=== PATIENT | female | born 1950 | race Caucasian/White ===

== ENCOUNTER 2016-12-14 10:05 | Day surgery (SDC) | payer MEDICARE, OTHER ==
[~2016-12-14] VITALS: Ht 160 cm; Wt 68.0 kg
[~2016-12-14 10:05] MED LIST: FLECTOR1 PATCH TRANSDERM; LISINOPRIL5 MG PO; PROAIR HFA8.5 GM INH; TRAZODONE HCL50 MG PO
[2016-12-14 10:41] LABS: BASOPHILS 0.4 % (0.0-2.0); EOSINOPHILS 1.8 % (0-7); HEMATOCRIT 42.2 % (36.0-48.0); HEMOGLOBIN 14.1 g/dL (12-16); IMMATURE GRANULOCYTES 0.2 % (0-5); LYMPHOCYTES 29.8 % (15-50); MCH 30.7 pg (26.0-34.0); MCHC 33.4 g/dL (31.0-37.0); MCV 91.7 fL (80.0-100.0); MEAN PLATELET VOLUME 10.3 fL (7.4-10.4); MONOCYTES 7.4 % (2-11); NEUTROPHILS 60.4 % (40-80); PLATELET COUNT 215 10x3/uL (130-400); RDW 12.2 % (11.5-14.5); WBC 9.8 10x3/uL (4.8-10.8)
[2016-12-14] MEDS ORDERED: PEPCID20 MG PO (10:44)
[2016-12-14] MEDS ORDERED: OMEPRAZOLE20 M1 PO (10:45)
[2016-12-14] MEDS ORDERED: CALCIUM 600+D T1 TA1 PO (10:46)
[2016-12-14] MEDS ORDERED: VITAMIN D31000 UNIT PO (10:46)
[2016-12-14] MEDS ORDERED: VITAMIN B-12500 MC1 PO (10:47)
[2016-12-14] MEDS ORDERED: FISH OIL 1,0001 CA1 PO (10:47)
[2016-12-14] MEDS ORDERED: CENTRUM COMPLE1 EACH PO (10:47)
[2016-12-14] MEDS ORDERED: MAGNESIUM OXID250 MG (10:47)
[2016-12-14] MEDS ORDERED: BAYER CHEWABLE81 MG PO (10:48)
[2016-12-14 10:54] LABS: ANION GAP 10.7 mmol/L (8-16); CALCIUM 9.1 mg/dL (8.5-10.1); CARBON DIOXIDE 30.1 mmol/L (21.0-32.0); CREATININE - SERUM 0.9 mg/dL (0.6-1.3); POTASSIUM - SERUM 3.8 mmol/L (3.5-5.1)
[2016-12-14 11:37] VITALS: BP 132/68; Ht 160 cm; Wt 68.0 kg
--- NOTE | 2016-12-14 17:05 | NUR ---
1445 FROM PACU AFTER COLONOSCOPY. PATIENT ROUSES BUT SLEEPY. WAS BURPED AFTER PROCEDURE AND IS PASSING FLATUS.
--- NOTE | 2016-12-14 17:06 | NUR ---
1515 FULL LIQUIDS SERVED AND IS TOLERATING.
--- NOTE | 2016-12-14 17:08 | NUR ---
[address] AYAH POSEY.
--- NOTE | 2016-12-14 17:10 | NUR ---
1555 UP AND VOIDED IV DCD CATHETER INTACT. WENT OVER DISCHARGE INSTRUCTIONS AND VERBALLY UNDERSTANDS.1605 TO HOME VIA W/C WITH SPOUSE.
--- NOTE | 2016-12-28 11:23 | OP ---
PATIENT NAME: ROSA MARIA BOYKIN MEDICAL RECORD: [id number] :46 LOCATION:D.OPS ADMISSION DATE: SURGEON: LIANNE DE OLIVEIRA MD DATE OF OPERATION: 12/14/2016 PROCEDURE: Colonoscopy without biopsy or polypectomy. BATTERY TESTER FIELD: Lianne De Oliveira MD SCOPE: Olympus video colonoscope. MEDICATIONS: Per TIVA. The patient was intubated for this procedure. Since she has a history of aspiration secondary to gastroesophageal reflux disease, she received 100 mg of propofol for this procedure, Versed 2 mg, all IV push. INDICATION FOR THE PROCEDURE: Change in bowel pattern with constipation, diverticular disease, hematochezia felt likely related to hemorrhoids and history of colon polyps. FINDINGS: Informed consent was given. The patient was made comfortable with the above medications. After reaching an adequate level of sedation by slow IV push, the patient was placed on her left side. The rectal exam revealed good sphincter tone, no fissures or fistulas were appreciated. No external skin tags were seen. The colonoscope was advanced to the cecum where the ileocecal valve and appendiceal orifice were identified. In withdrawal of the scope, the patient was noted to have pandiverticulosis without diverticulitis and additionally, she had spasm associated with irritable bowel syndrome, constipation predominant. Within the rectal vault, hemorrhoids were appreciated. The scope was then withdrawn. IMPRESSION: 1. Normal cecum and normal appendiceal orifice. 2. Pandiverticulosis without diverticulitis. 3. Spasm associated with irritable bowel syndrome. 4. Grade I hemorrhoids, which are the cause of bleeding, but are not bleeding at this time. PLAN: The patient should employ a good high fiber diet and for constipation avoidance, she should have fluid, fiber, stool softeners and if necessary a daily dose of MiraLax or milk of magnesia. Probiotics should also be taken and she should avoid if possible anti-inflammatory drugs. TRANSINT:[id number] Voice Confirmation ID: [id number] DOCUMENT ID: [id number] LIANNE DE OLIVEIRA MD at 1123 CC: DANO ALEJO MD [id number] DICTATION DATE: 12/14/16 1419 CUSTOMER CARE MANAGER: 12/14/16 190 [facility] 12/14/16 [facility] [address] [facility] [place] [address]
== END 2016-12-14 16:05 | disposition home or self-care (01) ==
LOC: D.OPS 10:05
PROVIDERS: Anesthesiology
DX: Z86.010 Personal history of colon polyps (principal); K57.30 Diverticulosis of large intestine without perforation or abscess without bleeding; R19.4 Change in bowel habit; K64.0 First degree hemorrhoids; I10 Essential (primary) hypertension; K21.9 Gastro-esophageal reflux disease without esophagitis; M19.90 Unspecified osteoarthritis, unspecified site

== ENCOUNTER 2017-05-31 12:05 | Day surgery (SDC) | payer MEDICARE, OTHER ==
[~2017-05-31] VITALS: Ht 160 cm; Wt 68.2 kg
--- NOTE | ~2017-05-31 | OP ---
PATIENT NAME: ROSA MARIA BOYKIN MEDICAL RECORD: [id number] :46 LOCATION:D.OPS ADMISSION DATE: SURGEON: LISANDRO PALOMINO DO DATE OF OPERATION: 05/31/2017 PROCEDURE: EGD with biopsies. INDICATIONS FOR PROCEDURE: Followup of esophageal ulcer without bleeding. SCOPE: Olympus video gastroscope. MEDICATIONS: Propofol 100 mg IV per anesthesia. ESTIMATED BLOOD LOSS: Minimal. COMPLICATIONS: None. FINDINGS: Informed consent was given. The patient was made comfortable with the above medication. After reaching an adequate level of sedation by slow IV push, the patient was placed on her left side. The endoscope was then advanced under direct visualization through the mouth to the second portion of the duodenum. The upper, middle, and lower thirds of the esophagus appeared normal. At the GE junction, there was a very mild evidence of LA class A reflux-induced esophagitis. There were no ulcerations or irritation/inflammation. Just beyond the GE junction, it was evident that there was still a hiatal hernia present. This was noticeable from the esophageal view. As the endoscope was advanced beyond the GE junction into the stomach and retroflexed to view the cardia was apparent that a previous Yaquelin fundoplication had been performed. The wrap was not intact at this time, but was still partially intact. The fundus, body, antrum, and prepyloric regions of the stomach all appeared normal. Random biopsies were taken from the antrum and incisura to submit for histology and to rule out H. pylori. The endoscope was advanced beyond the pylorus into the duodenum where the bulb and second portion of the duodenum appeared normal. The endoscope was then withdrawn from the patient. The patient tolerated the procedure well and there were no complications. IMPRESSION: 1. LA class A reflux-induced esophagitis. 2. Previous Yaquelin fundoplication with residual hiatal hernia. PLAN AND RECOMMENDATIONS: 1. Discharge home when recovery parameters are met. 2. Follow up biopsy specimen results. 3. Continue current diet. 4. Continue current medications. 5. Notify GI clinic of change in symptoms. At this time, symptoms are well controlled with current medications. TRANSINT:[id number] Voice Confirmation ID: [id number] DOCUMENT ID: [id number] OPERATIVE REPORT [id number] ROSA MARIA BOYKIN LISANDRO PALOMINO DO CC: [id number] DICTATION DATE: 05/31/17 1605 BUSINESS OFFICE COORDINATOR: 05/31/172039 [facility] 05/31/17 [facility] [address] [id number]
[~2017-05-31 12:05] MED LIST changes: +BAYER CHEWABLE81 MG PO; +CALCIUM 600+D T1 TA1 PO; +CENTRUM COMPLE1 EACH PO; +FISH OIL 1,0001 CA1 PO; +MAGNESIUM OXID250 MG; +OMEPRAZOLE20 M1 PO; +PEPCID20 MG PO; +VITAMIN B-12500 MC1 PO; +VITAMIN D31000 UNIT PO
[2017-05-31 12:58] LABS: BASOPHILS 0.1 % (0-2); EOSINOPHILS 1.9 % (0-7); HEMATOCRIT 41.5 % (36.0-48.0); IMMATURE GRANULOCYTES 0.1 % (0-5); LYMPHOCYTES 45.7 % (15-50); MCH 30.6 pg (26.0-34.0); MCHC 33.7 g/dL (31.0-37.0); MCV 90.8 fL (80.0-100.0); MEAN PLATELET VOLUME 10.7 fL (7.4-10.4); MONOCYTES 6.3 % (2-11); NEUTROPHILS 45.9 % (40-80); PLATELET COUNT 249 10x3/uL (130-400); RBC 4.57 10x6/uL (4.00-5.40); RDW 12.1 % (11.5-14.5); WBC 6.7 10x3/uL (4.8-10.8)
[2017-05-31 13:06] LABS: CALC OSMOLALITY 283 mosm/kg (275-300); CALCIUM 8.6 mg/dL (8.5-10.1); CARBON DIOXIDE 30.2 mmol/L (21.0-32.0); CHLORIDE - SERUM 106 mmol/L (98-107); CREATININE - SERUM 0.7 mg/dL (0.6-1.3); GLUCOSE 98 mg/dL (74-106); POTASSIUM - SERUM 3.8 mmol/L (3.5-5.1); SODIUM 143 mmol/L (136-145); UREA NITROGEN 11 mg/dL (7-18); eGFR NON AFRICAN AMERICAN 88 mL/min (90-120)
[2017-05-31 13:16] VITALS: Ht 160 cm; Wt 68.2 kg
--- NOTE | 2017-05-31 17:09 | NUR ---
1705 DISCHARGE INSTRUCTIONS GABIPLETClaudia. PATIENT HAS NO QUESTIONS OR CONCERNS AT THIS TIME. ESCORTED OUT.
== END 2017-05-31 17:05 | disposition home or self-care (01) ==
LOC: D.OPS 12:05
PROVIDERS: Anesthesiology
DX: K22.10 Ulcer of esophagus without bleeding (principal); K21.0 Gastro-esophageal reflux disease with esophagitis; I10 Essential (primary) hypertension; K44.9 Diaphragmatic hernia without obstruction or gangrene; Z01.812 Encounter for preprocedural laboratory examination

== ENCOUNTER 2018-09-13 09:31 | Day surgery (SDC) | payer OTHER ==
[~2018-09-13] VITALS: Ht 160 cm; Wt 72.3 kg
--- NOTE | ~2018-09-13 | OP ---
PATIENT NAME: ROSA MARIA BOYKIN MEDICAL RECORD: [id number] :46 LOCATION:D.[facility] ADMISSION DATE: SURGEON: LIANNE DE OLIVEIRA MD DATE OF OPERATION: 09/13/2018 PROCEDURE: EGD with biopsy. SUPERINTENDENT COMPRESSOR STATIONS: Lianne De Oliveira MD SCOPE: Olympus video gastroscope. MEDICATIONS: Per TIVA anesthesia. The patient received 140 mg of propofol for this procedure, O2 4 liters. INDICATION FOR THE PROCEDURE: Epigastric pain, gastroesophageal reflux disease as well as nausea. PRIMARY CARE PHYSICIAN: Harish Duarte MD The patient's last EGD procedure was with Dr. Carlos Mcgrath, 05/31/2017, which was done as a followup for an esophageal ulceration without bleeding that was noted on an EGD 2 months before. This procedure was significant for LA class A reflux-induced esophagitis. The patient was noted to have a small hiatal hernia and evidence of her previous Yaquelin fundoplication was noted. The patient was discharged on her previous medications. Pathology report of the gastric biopsies revealed mild chronic gastritis, H. pylori was not present. An EGD will be done this date. FINDINGS AND DESCRIPTION OF PROCEDURE: Informed consent was given. The patient was made comfortable with the above medications. After reaching an adequate level of sedation by slow IV push, the patient was placed on her left side. The endoscope was then advanced under direct visualization through the posterior pharyngeal area and advanced to the distal esophagus. Only very mild distal esophagitis was noted followed by a small hiatal hernia, which was seen both on direct and retroflex views. The patient did have evidence of a previous Yaquelin fundoplication, but since she has a hiatal hernia and is actively refluxing, this surgical procedure is no longer effective. If she wishes to proceed with a repeat Yaquelin fundoplication, she will require 24-hour pH and manometry and I will discuss that with her after the procedure. We then proceeded into the gastric area and thoroughly explored the cardia, body, fundus, and antral areas, only very mild inflammation was seen throughout the gastric area and biopsies were taken at the antral area looking for the presence of Helicobacter pylori. The duodenal bulb to the second portion had mild inflammation present and biopsies were taken. The scope was then withdrawn. IMPRESSION: 1. Very mild distal esophagitis due to refluxing biopsy. 2. Evidence of a previous Yaquelin fundoplication which is no longer effective. 3. Small hiatal hernia. 4. Mild gastritis. 5. Mild duodenitis. PLAN: OPERATIVE REPORT [id number] REGGIEROSA MARIA NATARAJAN 1. The patient is presently taking omeprazole at a dose of 20 mg p.o. daily. We will add famotidine at 20 mg p.o. at bedtime. 2. We will recommend a redo of the Yaquelin fundoplication and we will also query the patient about her to choice of a surgeon. 3. Caution with anti-inflammatory drugs. 4. The patient to follow reflux precautions stringently, both dietary and positional. No chocolate, tomato, citrus, caffeine, fatty foods, peppermint. The patient should not eat late at night and should sit up a couple hours after every meal and sleep with the head of the bed elevated if she is refluxing during nighttime hours. TRANSINT:[id number] Voice Confirmation ID: [id number] DOCUMENT ID: [id number] LIANNE DE OLIVEIRA MD CC: DANO DUARTE MD [id number] DICTATION DATE: 09/13/18 1316 TONG HOOKER: 09/13/18 1341 [facility] [address] [id number]
[2018-09-13 10:07] LABS: HEMOGLOBIN 14.2 g/dL (12-16); MCH 31.6 pg (26.0-34.0); MCHC 33.8 g/dL (31.0-37.0); MCV 93.5 fL (80.0-100.0); MEAN PLATELET VOLUME 10.3 fL (7.4-10.4); RBC 4.49 10x6/uL (4.00-5.40); WBC 6.9 10x3/uL (4.8-10.8)
[2018-09-13] MEDS ORDERED: COZAAR25 MG (10:40)
[2018-09-13 10:45] VITALS: BP 121/72; Ht 160 cm; Wt 72.3 kg
== END 2018-09-13 14:15 | disposition home or self-care (01) ==
LOC: D.OPS 09:31
PROVIDERS: Anesthesiology
DX: K21.0 Gastro-esophageal reflux disease with esophagitis (principal); K44.9 Diaphragmatic hernia without obstruction or gangrene; K29.70 Gastritis, unspecified, without bleeding; K29.80 Duodenitis without bleeding; Z01.812 Encounter for preprocedural laboratory examination

== ENCOUNTER → 2018-09-25 12:20 | Outpatient (CLI) | payer OTHER ==
[2018-09-13 10:45] VITALS: BMI 28.2
[~2018-09-25 12:20] MED LIST changes: +COZAAR25 MG
[2018-09-27 05:16] LABS: ENDOMYSIAL ANTIBODY IGA Negative (Negative)
[2018-09-27 12:17] LABS: ANTIGLIADIN IGA 17 units (0-19); ANTIGLIADIN IGG 41 units (0-19)
== END | disposition home or self-care (01) ==
LOC: D.LAB 12:20
PROVIDERS: Internal Medicine Gastroenterology
DX: D72.820 Lymphocytosis (symptomatic) (principal)

== ENCOUNTER → 2018-10-09 08:26 | Outpatient (CLI) | payer OTHER ==
[2018-09-13 10:45] VITALS: BMI 28.2
== END ==
LOC: D.RAD 08:26
DX: K90.0 Celiac disease (principal)

== ENCOUNTER → 2018-12-11 07:11 | Day surgery (SDC) | payer OTHER ==
[2018-09-13 10:45] VITALS: BMI 28.2
[~2018-12-11 07:11] MED LIST changes: +HYDROCODON-ACE1 EA10 PO; +PEPCID AC20 MG PO; +REGLAN10 MG PO
== END | disposition home or self-care (01) ==
LOC: D.OPS 07:11
DX: K21.9 Gastro-esophageal reflux disease without esophagitis (principal)

== ENCOUNTER 2018-12-20 03:00 | Observation (INO) | payer OTHER ==
[2018-12-18 11:34] LABS: CALC OSMOLALITY 282 mosm/kg (275-300); CALCIUM 8.5 mg/dL (8.5-10.1); CARBON DIOXIDE 28.1 mmol/L (21.0-32.0); CHLORIDE - SERUM 106 mmol/L (98-107); CREATININE - SERUM 0.8 mg/dL (0.6-1.3); GLUCOSE 112 mg/dL (74-106); SODIUM 142 mmol/L (136-145); UREA NITROGEN 11 mg/dL (7-18); eGFR NON AFRICAN AMERICAN 75 mL/min (90-120)
[2018-12-18 11:40] LABS: BASOPHILS 0.3 % (0-2); EOSINOPHILS 1.2 % (0-7); HEMATOCRIT 40.4 % (36.0-48.0); HEMOGLOBIN 13.6 g/dL (12-16); IMMATURE GRANULOCYTES 0.3 % (0-5); LYMPHOCYTES 39.2 % (15-50); MCH 31.1 pg (26.0-34.0); MCHC 33.7 g/dL (31.0-37.0); MCV 92.2 fL (80.0-100.0); MEAN PLATELET VOLUME 10.5 fL (7.4-10.4); MONOCYTES 6.6 % (2-11); NEUTROPHILS 52.4 % (40-80); PLATELET COUNT 247 10x3/uL (130-400); RBC 4.38 10x6/uL (4.00-5.40); WBC 6.7 10x3/uL (4.8-10.8)
[~2018-12-20] VITALS: Ht 157.5 cm; Wt 70.5 kg
[~2018-12-20 03:00] MED LIST changes: -HYDROCODON-ACE1 EA10 PO; -PEPCID AC20 MG PO; -REGLAN10 MG PO
[2018-12-20] MEDS ORDERED: PEPCID AC20 MG PO (07:11)
[2018-12-20 07:18] VITALS: BP 129/65; BMI 28.4
[2018-12-20 11:44] VITALS: BP 157/68
--- NOTE | 2018-12-20 12:00 | NUR ---
PATIENT TO ROOM AT THIS TIME WITH IV INTACT. NO COMPLAINTS OR SIGNS OF DISTRESS. O2 PLACED DUE TO SATS DROPPING WHILE ASLEEP. 2L NC. STATES NO PAIN AT THIS TIME. SITES X 5 CDI. BANDAIDS CDI. FAMILY AT BEDSIDE. CALL LIGHT WITHIN REACH.
--- NOTE | 2018-12-20 16:00 | NUR ---
ASSISTED PATIENT TO BR. NO PROBLEMS AT THIS TIME. IV INTACT. CALL LIGHT WITHIN REACH.
[2018-12-20 18:48] VITALS: BP 157/68; Ht 157.5 cm; Wt 70.5 kg
--- NOTE | 2018-12-20 18:58 | NUR ---
PATIENT IN BED WITH IV INTACT. NO COMPLAINTS OR SIGNS OF DISTRESS. FAMILY AT BEDSIDE. CALL LIGHT WITHIN REACH.
--- NOTE | 2018-12-20 18:58 | NUR ---
PATIENT IN BED WITH IV INTACT. NOC OMPLAINTS OR SIGNS OF DISTRESS. IV INTACT. O2 2LNC ON. CALL LIGHT WITHIN REACH.
--- NOTE | 2018-12-20 19:55 | NUR ---
PT RESTING IN BED. ALERT AND ORIENTED. NO SIGNS OF DISTRESS. BREATHING EVEN AND UNLABORED. PT STATES NO PROBLEMS AT THIS TIME. IV SITE LT FA DRESSING CLEAN DRY AND INTACT. NO SIGNS OF INFECTION. ABD INCISIONS DRESSINGS ALL CLEAN DRY AND INTACT. NO LOWER LEG SWELLING PRESENT. WILL CONTINUE PLAN OF CARE. CALL LIGHT IN REACH. BED LOWERED AND LOCKED. BED RAILS UP X2.
[2018-12-20 20:00] VITALS: BP 117/56
[2018-12-21] VITALS: BP 101/55
--- NOTE | 2018-12-21 02:49 | NUR ---
PT LYING IN BED RESTING, NO SIGNS OF DISTRESS. WITHOUT NEEDS. AGREE W/ SENIOR QUALITY MANAGER ASSESSMENT. CL IN REACH, WILL CONTINUE TO MONITOR
[2018-12-21 04:00] VITALS: BP 113/52
[2018-12-21 07:04] LABS: BASOPHILS 0.1 % (0-2); EOSINOPHILS 0 % (0-7); HEMATOCRIT 34.6 % (36.0-48.0); HEMOGLOBIN 11.4 g/dL (12-16); IMMATURE GRANULOCYTES 0.2 % (0-5); LYMPHOCYTES 12.1 % (15-50); MCH 30.6 pg (26.0-34.0); MCHC 32.9 g/dL (31.0-37.0); MCV 92.8 fL (80.0-100.0); MONOCYTES 7.4 % (2-11); NEUTROPHILS 80.2 % (40-80); PLATELET COUNT 210 10x3/uL (130-400); RBC 3.73 10x6/uL (4.00-5.40); RDW 12.3 % (11.5-14.5); WBC 12.5 10x3/uL (4.8-10.8)
[2018-12-21 07:11] LABS: CALC OSMOLALITY 285 mosm/kg (275-300); CHLORIDE - SERUM 108 mmol/L (98-107); CREATININE - SERUM 0.7 mg/dL (0.6-1.3); GLUCOSE 102 mg/dL (74-106); POTASSIUM - SERUM 4.7 mmol/L (3.5-5.1); SODIUM 144 mmol/L (136-145); UREA NITROGEN 11 mg/dL (7-18); eGFR NON AFRICAN AMERICAN 88 mL/min (90-120)
[2018-12-21 08:49] VITALS: BP 128/53
--- NOTE | 2018-12-21 10:45 | NUR ---
PATIENT UP AMBULATING IN [place] WITH AT THIS TIME. NO PROBLEMS AT THIS TIME.
[2018-12-21 12:35] VITALS: BP 138/68
[2018-12-21] MEDS ORDERED: HYDROCODON-ACE1 EA10 PO (13:12)
[2018-12-21] MEDS ORDERED: REGLAN10 MG PO (13:12)
--- NOTE | 2018-12-21 17:00 | NUR ---
DISCUSSED DISCHARGE, MEDICATION AND FOLLOW-UP INSTRUCTIONS. VERBALIZED UNDERSTANDING. IV REMOVED, TIP INTACT. ALL BELONGINGS SENT WITH PATIENT. DISCHARGED HOME VIA WHEELCHAIR BY MYSELF.
--- NOTE | 2018-12-26 17:03 | MORECARE ---
CASE MANAGEMENT DISCHARGE SUMMARY PATIENT: ROSA MARIA BOYKIN UNIT: [id number] ADM DATE: 12/20/18 AGE: 68 : 48 SEX: F [facility] AUTHOR: MADONNA CROSS PHYSICIAN: REFERRING PHYSICIAN: JANEL ENRIQUEZ MD DATE OF SERVICE: 12/26/18 Discharge Plan Patient Name: ROSA MARIA BOYKIN Facility: [facility]:[place] : 1950 Planned Disposition: Anticipated Discharge Date: Discharge Date: 12/21/2018 Expected LOS: 0 Initial Reviewer: [email or web address] Initial Review Date: 12/26/2018 Generated: 12/26/18 6:02 pm Patient Name: ROSA MARIA BOYKIN Page [id number] at 1703 All edits/amendments must be made on the electronic document DICTATION DATE: 12/26/181701 MACHINE ASSISTANT: HARDIK 12/26/181701 RPT#: [id number] DC DATE:12/21/18 STATUS: DIS IN [facility] [address] [facility] [place] [address] END OF REPORT
--- NOTE | 2018-12-27 09:41 | OP ---
PATIENT NAME: ROSA MARIA BOYKIN MEDICAL RECORD: [id number] :46 LOCATION:D.[id number] ADMISSION DATE:12/20/18 SURGEON: TYSON ENRIQUEZ MD DATE OF OPERATION: 12/20/2018 PREOPERATIVE DIAGNOSES: 1. GERD. 2. Gluten insensitivity. 3. Hiatal hernia. POSTOPERATIVE DIAGNOSES: 1. GERD. 2. Gluten insensitivity. 3. Hiatal hernia. PROCEDURE: Redo laparoscopic Yaquelin fundoplication with hiatal hernia repair. SURGEON: Tyson Enriquez MD REPORT OF PROCEDURE: The patient's abdomen was prepped and draped in sterile fashion. A Veress needle was inserted in the left upper quadrant and the abdomen was insufflated. An 11-mm Visiport trocar was inserted in the midline just above the umbilicus. I could see the Veress needle and there was no sign of any injury to bowel or surrounding structures. The Veress needle was removed. A 5-mm trocar was placed in the left lateral abdomen. With this 5-mm trocar in place, I took down few adhesions of the omentum to the anterior abdominal wall. This was done with Harmonic scalpel and there was no sign of any bleeding at the conclusion of this. At this point, we were able to place an 11-mm trocar in the left subcostal region, a 5-mm trocar in the epigastrium, and a final 5-mm trocar in the right lateral subcostal region. A liver retractor was inserted and the snake liver retractor was placed under the left lobe of the liver and this portion of the liver was elevated. The patient had a large amount of adhesions present in this portion of the abdomen from a previous laparoscopic Yaquelin with hiatal hernia repair. A tedious dissection was performed of some thick adhesions from the lining of the stomach to the liver and the esophageal hiatus. We were able to eventually dissect all of these free and I was able to get into the esophageal hiatus into the thoracic cavity. We continued our dissection through any adhesions that were present of the esophagus to the surrounding attachments. We eventually were able to free these completely up and I was able to get probably in mid thoracic esophagus. This appeared to be normal, and at this point, we had 360-degree inspection of the esophagus and we were able to pull it down easily into the abdominal cavity. We did have some attachments of the greater curvature of the stomach to the inferior aspect of the diaphragm and these were taken down with Harmonic scalpel. At this point, we had free mobility of the stomach. The previous Yaquelin wrap was visible and just appeared to be down a little bit further on the stomach than normal and appeared to be just below the GE junction. I was able to take down the sutures and attachments of this fundoplication wrap and completely unwrap this portion of the stomach. We took down any adhesions that were present from the stomach to itself and the esophagus and laid the stomach down in its normal anatomic position. Inspection of the patient's esophageal hiatus showed 2 sutures that were present from previous hiatal hernia repair. There was still some laxity to the superior aspect of the hiatus and so 2 separate sutures of #0 Polydek were used to reapproximate the tissues with good approximation of the tissues around the esophagus. We then performed a OPERATIVE REPORT [id number] ROSA MARIA BOYKIN 360-degree posterior wrap at the fundus of the stomach, around the distal aspect of the esophagus. This was performed with #0 Polydeks times 3 with the top and the bottom sutures incorporating a bite of the esophagus. The wrap appeared to be in excellent condition. There was no sign of any overtightening of the wrap itself. The stomach appeared to be viable with no signs of any cyanotic changes. The abdomen was then irrigated out thoroughly with normal saline. There were a couple areas of bleeding present at the liver site, which were treated with electrocautery and this discontinued any bleeding. At this point, the liver retractor was removed. The 11-mm trocar site fascias were closed with #0 Vicryls using a Freddie-Hillary suture passer device. At this point, the ports and insufflation were then removed. A total of 10 mL of 0.25% Marcaine with epinephrine was infused into the surrounding tissues and the skin incisions were closed with subcutaneous 5-0 Monocryl. COMPLICATIONS: None. CONDITION: Stable. ANESTHESIA: General endotracheal and local. BLOOD LOSS: Minimal. TRANSINT:[id number] Voice Confirmation ID: [id number] DOCUMENT ID: [id number] TYSON ENRIQUEZ MD at 0941 CC: DANO ALEJO MD and RUPERT POON [id number] DICTATION DATE: 12/20/18 1037 RADIOGRAPHER TECHNOLOGIST: 12/20/18 1134 DIS IN 12/21/18 [facility] [address] [place] [address]
== END 2018-12-21 17:00 | disposition home or self-care (01) ==
LOC: D.OPS 03:00 → D.PAN 08:00 → D.OPS 08:00 → D.MS 11:15 → D.OPS 11:30 → D.MS 11:31 → OBSVTIME 11:32 → D.MS 12-21 17:00
PROVIDERS: ADMIT Surgery
DX: K21.9 Gastro-esophageal reflux disease without esophagitis (principal); K44.9 Diaphragmatic hernia without obstruction or gangrene; K90.41 Non-celiac gluten sensitivity